=== PATIENT | male | born 1970 | race Caucasian/White ===

== ENCOUNTER 2025-05-08 12:54 | Emergency (ER) | payer BC, SELFPAY ==
[2025-05-08 13:17] LABS: Hematocrit 37.8 % (39.0-52.0); Hemoglobin 12.8 g/dL (13.0-18.0); Mean Corp Hgb Conc. 33.9 g/dL (33.0-37.0); Mean Corpuscular Volume 87.7 fL (80.0-94.0); Nucleated Red Blood Cells % 0 % (-); Platelet Count 336 10^3/uL (130-400); Red Cell Dist. Width 12.4 % (11.5-14.5)
[2025-05-08 13:36] LABS: ALT (SGPT) 15 U/L (0-50); AST (SGOT) 18 U/L (17-59); Albumin 4.7 g/dl (3.5-5.0); Alkaline Phosphatase 65 U/L (38-126); Blood Urea Nitrogen 7 mg/dl (9-20); Calcium 9.4 mg/dl (8.4-10.2); Carbon Dioxide 28 mmol/L (22-30); Chloride 105 mmol/L (98-107); Glucose 112 mg/dl (70-99); Potassium 4.5 mmol/L (3.5-5.1); Sodium 141 mmol/L (135-145); Total Protein 7.4 g/dl (6.3-8.2); eGFR > 60.00
[2025-05-08 13:50] LABS: Troponin I < 0.012 ng/ml
[2025-05-08 16:54] VITALS: BP 114/77
[2025-05-08 17:00] VITALS: BMI 22.9
--- NOTE | 2025-05-08 17:12 | ED.GENMED ---
History of Present Illness
General
Chief Complaint: Chest Pain
Source: patient and spouse
Time Seen by Provider: 05/08/25 17:00
History of Present Illness
History of Present Illness:
55-year-old male presents emergency department with complaints of first began Sunday evening when he went to bed. He awoke to go to the bathroom and noted that he had discomfort across the front of his chest. He said it felt like a muscle pull.
He went back to bed and when he woke up Sunday he had similar discomfort associated with feeling like it was hard to breathe. That night he felt slightly feverish and diaphoretic, this is since resolved. Since awaking Sunday, he continues to have
the discomfort although it is improved. It is constant, although seems to be worse with a deep breath. He notes that the pain is now more localized to the left shoulder/upper back area. The pain was not abrupt in onset, not ripping or tearing
quality, does not radiate through to his back. He says it is mild, not described as pain, but rather 'tight muscles'. He denies associated cough, sore throat, rhinorrhea, abdominal pain, nausea, vomiting, leg swelling, and neck pain, headache,
dizziness, numbness, tingling, or other complaints.
Past History
Past History
ED Past Medical History: Hypercholesterolemia
Social History
Tobacco: Smoker
Alcohol: Occasional
Drug: None
Personal:
Phy Exam
Physical Exam
Physical Exam:
GENERAL: Alert , in no apparent distress
EYE: pupils equal and reactive
NECK: Supple, no significant adenopathy.
ENT: o/p clr, mmm.
CARDIAC: Regular rate and rhythm, no murmurs noted .
LUNGS: Clear breath sounds bilaterally, no acute respiratory distress, no wheezes/rales/rhonchi
ABDOMEN: Soft, without focal tenderness, no r/g, no cvat
NEUROLOGICAL: Alert and oriented, no focal neuro deficits
SKIN: Warm and dry, skin intact.
MUSCULOSKELETAL: No edema, well perfused.
PSYCH: Normal and appropriate interaction.
Scores
Heart Score for Chest Pain Patients
STEMI patient?: Not applicable
Course
Orders/Labs/Results
Orders:
Orders
05/08/25 12:56
Electrocardiogram (*1) Urgent
Reason for Study: Chest Pain
05/08/25 12:57
EKG- Treatment ONCE
05/08/25 13:08
Complete Blood Count/With Diff Urgent
Comprehensive Metabolic Panel Urgent
Troponin I Urgent
05/08/25 17:44
D-Dimer Urgent
Troponin I Urgent
05/08/25 18:47
CT Chest PE Study Urgent
Comment:
Reason For Exam: pleuritic cp
Abnormal Lab Results
05/08/25 05/08/25
13:08 17:44
WBC 11.9 H 10^3/uL
(4.8-10.8)
RBC 4.31 L 10^6/uL
(4.70-6.10)
Hgb 12.8 L g/dL
(13.0-18.0)
Hct 37.8 L %
(39.0-52.0)
Absolute Neuts (auto) 9.2 H 10^3/uL
(1.4-6.5)
Neutrophils % 77.3 H %
(42.2-75.2)
Lymphocytes % 11.7 L %
(20.5-51.1)
D-Dimer 1.66 H ug/mlFEU
(0.00-0.50)
BUN 7 L mg/dl
(9-20)
Creatinine 0.6 L mg/dL
(0.7-1.3)
Glucose 112 H mg/dl
(70-99)
05/08/25 13:08
05/08/25 13:08
Vital Signs
Initial and Last Documented VS:
Initial Vital Signs
Temp Pulse Resp Pulse Ox
98.8 F 102 20 96
05/08/25 12:57 05/08/25 12:57 05/08/25 12:57 05/08/25 12:57
Last Documented Vital Signs
Temp Pulse Resp BP Pulse Ox
97.7 F 74 15 114/77 99
05/08/25 17:00 05/08/25 16:55 05/08/25 16:55 05/08/25 16:54 05/08/25 17:13
*Pulse Oximetry
SaO2: 99
Oxygen Mode of Delivery: Room air
Patient hypoxic: no
*Critical Care Note
Total Time (30-74mins, 75-104mins- exclusive of procedures): Not Applicable
Update Note
Update Note:
Patient presents to the Emergency Department with chest pain
Number and Complexity of Problems Addressed at the Encounter
� Chronic conditions affecting care:
� Acute Exacerbation and/or Progression of Chronic Illness:
� Differential Diagnosis includes:but not limited to acs, pe, dissection, ptx, muscle strain, pericarditis, etc etc.
Amount and/or Complexity of Data to be Reviewed and Analyzed
� I performed an independent evaluation of and my interpretation is:
EKG: read by me, nsr, nl rate, nl axis, no ischemia
CT:No acute disease of the chest. No pulmonary embolus.
Tiny pericardial effusion. Progressed.
Xrays:
Laboratory Studies: Slight white blood cell count elevation, nonspecific, very mild anemia. Troponin x 2 negative
Other:
� Review of other/old records reveals:
� Clinical information was obtained by an independent historian:ex at bedside
� Prescriptions/Medications Considered but not given:
� Further testing considered but not performed:
Risk of Complications and/or Morbidity or Mortality of Patient Management
� Social determinants of health affecting care:
� Discussion with other providers (PCP, Hospitalists, Consultants, etc):
� Escalation of care including admission/observation vs risk of discharge considered: 9:11 PM patient resting comfortably, very eager to go home. Testing reviewed with him including tiny pericardial effusion. I reviewed his ECG
again and I do not see signs to suggest pericarditis although his complaint of pain prickly at left shoulder could be related. Patient will be referred for close cardiology follow-up, likely echo to reassess pericardial effusion. In the interim
advised patient to take anti-inflammatory medication [id number] with food. Discussed with patient importance of follow-up and reasons return to the ER
ED Attending Note
-
Portions of this chart may have been created with voice recognition software.� Occasional wrong word or��sound alike� substitutions may have occurred due to the inherent limitations of voice recognition software.
Discharge Plan
Departure
Patient Disposition: Home (Routine Discharge)
Date of Disposition: 05/08/25
Time of Disposition: 21:12
Patient with high blood pressure during this ER visit?: No
Condition: Good
Discharge Problem:
Chest pain
Instructions: Chest Pain CBC Follow Up
Prescriptions:
No Action
No Meds [No Current Medications]
0
Referrals:
NONE,* [Active, Internal Medicine]
Activity Restrictions/Additional Instructions:
YOU HAVE A TINY PERICARDIAL EFFUSION WHICH NEEDS CLOSE FOLLOW-UP. PLEASE CALL THE DOCTOR EARLY Sunday. IF YOU DEVELOP INCREASING OR NEW PAIN, TROUBLE BREATHING, FEVER, VOMITING, ABDOMINAL PAIN, OR OTHER WORRISOME SIGNS, PLEASE RETURN TO
THE ER IMMEDIATELY!
Interventions
Interventions:
*Risk Screen - Suicide Last Done: 05/08/25 12:57
*General Assessment Last Done: 05/08/25 12:57
*Neglect/Abuse Screening Last Done: 05/08/25 17:00
*ED- Fall Risk Assessment Last Done: 05/08/25 17:00
*ED COVID-19 Vaccine History Last Done: 05/08/25 17:00
ED- Cardiac Assessment Last Done: 05/08/25 17:00
Discharge Date and Time
Print Language: MALTESE
[2025-05-08 18:15] LABS: Troponin I < 0.012 ng/ml
[2025-05-08 18:36] LABS: D-Dimer 1.66 ug/mlFEU (0.00-0.50)
== END 2025-05-08 21:28 | disposition home or self-care (01) ==
LOC: EMR 12:54
PROVIDERS: Emergency Medicine; EMERGENCY PHYSICIAN Emergency Medicine; FAMILY PHYSICIAN Nurse Practitioner Adult Health
DX: R07.89 Other chest pain (principal); F17.200 Nicotine dependence, unspecified, uncomplicated
CPT/HCPCS: 99285; 71275; 80053; 84484; 85025; 85379; 93005; Q9967

== ENCOUNTER → 2025-05-27 12:39 | Outpatient (REF) | payer BC, SELFPAY | LOC: HWRCS 12:39 | PROVIDERS: ATTENDING PHYSICIAN Internal Medicine Cardiovascular Disease; FAMILY PHYSICIAN Nurse Practitioner Adult Health | DX: Z72.0 Tobacco use (principal); R07.89 Other chest pain | CPT/HCPCS: 93306 ==

== ENCOUNTER → 2025-06-08 12:50 | Outpatient (REF) | payer BC, SELFPAY | LOC: RCS 12:50 | PROVIDERS: ATTENDING PHYSICIAN Internal Medicine Cardiovascular Disease; FAMILY PHYSICIAN Nurse Practitioner Adult Health | DX: Z72.0 Tobacco use (principal); R07.89 Other chest pain | CPT/HCPCS: 93017 ==